=== PATIENT | female | born 1960 | race Caucasian/White ===

== ENCOUNTER 2018-10-17 11:07 | Inpatient (IN) | payer BC ==
[~2018-10-17] VITALS: Ht 154.9 cm; Wt 49.4 kg
[2018-10-17 14:12] VITALS: BP 104/62
[2018-10-17] MEDS ORDERED: HYDR2TAB4 PO (14:32)
[2018-10-17] MEDS ORDERED: BUPR300T52 PO (14:32)
[2018-10-17] MEDS ORDERED: SERT50TA PO (14:32)
[2018-10-17] MEDS ORDERED: CARI350T27 PO (14:32)
[2018-10-17] MEDS ORDERED: ALPR1TAB7 PO (14:32)
[2018-10-17] MEDS ORDERED: BUDE10.2 IH (14:32)
[2018-10-17] MEDS ORDERED: DOCU-141 PO (14:32)
[2018-10-17] MEDS ORDERED: BACL10TA PO (14:32)
[2018-10-17] MEDS ORDERED: FLUT16SP NS (14:32)
[2018-10-17] MEDS ORDERED: ACET-2030 PO (14:32)
[2018-10-17] MEDS ORDERED: ALBU8.5H8 IH (14:32)
[2018-10-17] MEDS ORDERED: HYDR-4354 PO (14:32)
[2018-10-17] MEDS ORDERED: METO50TA16 PO (14:32)
[2018-10-17] MEDS ORDERED: Medication Not On Formulary EA (Alprazolam (Xanax) 1 MG) PO PRN (15:30)
[2018-10-17] MEDS: HYDROCODONE/APAP 10-325 MG TABLET PO PRN ×2 (15:42→22:42)
[2018-10-17] MEDS ORDERED: HYDROCODONE/APAP 10-325 MG TABLET ONE (15:42)
--- NOTE | 2018-10-17 16:30 | NUR ---
Admission Note: Admitted a 58 years old female pt. from [facility] via [facility] on a gurney with 2 EMT staff and 2 DTR for emotional support. Pt. is under the care of Dr. Corey who came with the following DX: lumbar decompression, anxiety, depression, bladder retention, dental jewish, DJD, hx: blood transfusion, HTN, mild acid reflux, osteoarthritis, RA, ankle surgery, appendectomy, cervical fusion, lumbar repair, rotator cuff repair, and tonsillectomy. Pt. is A/OX4, verbally responsive and able to make her needs known. No sob or acute distress, on RA and tolerating well 95% SpO2. Pt. with c/o severe back pain 06/26, received dilaudid prior to transfer per EMT. Pt. is full code and has allergies to Gentamicin. Initial skin assessment performed, noted with lower back surgical incision with dressing. Per MD noted, may remove dressing on POD #%. Dr. Tracey to check incision in 2 weeks 10/29/18. No other skin condition noted. Pt. on regular diet, coordinated with dietary dept. Pt. belongings inventoried. [place] 325-10 mg PRN for pain given promptly as ordered. All pt. needs attended promptly. Kept pt. clean and dry. Safety precaution in place. Call light and all frequently used items within pt. reach. Called Dr. Bowser and able to touchbase, all orders and medications clarified and verified by MD. Will endorse to oncoming shift accordingly.
[2018-10-17] MEDS: HYDROMORPHONE HCL 2 MG TABLET PO PRN ×2 (17:32→21:11)
[2018-10-17] MEDS: CARISOPRODOL 350 MG TABLET PO PRN (17:32)
[2018-10-17] MEDS: DOCUSATE SODIUM 100 MG CAPSULE PO SCH (17:32)
[2018-10-17] MEDS ORDERED: Z GUARD REMEDY PASTE 57 GM TUBE TOP PRN (19:00)
--- NOTE | 2018-10-17 19:00 | NUR ---
Sleeping during initial rounds. No s/s of respiratory distress noted. Safety measure and fall precaution maintained. Continue plan of care.
[2018-10-17 19:42] VITALS: BP 110/80
[2018-10-17] MEDS: FLUTICASONE PROP NASAL SPRAY 16 GM BOTTLE NS SCH (21:09)
[2018-10-18] MEDS: CARISOPRODOL 350 MG TABLET PO PRN ×4 (00:21→22:55)
[2018-10-18] MEDS: HYDROMORPHONE HCL 2 MG TABLET PO PRN ×3 (03:20→12:37)
[2018-10-18 05:42] VITALS: BP 109/70
--- NOTE | 2018-10-18 05:48 | NUR ---
Shift End Report: VS stable. Medicated for pain as needed and ordered with mild relief. Encouraged patient non pharmaceutical measures like deep breathing, relaxation techniques, repositioning, guided imagery to relieved discomforts. Ambulated to the bathroom with walker and some minimal/hand held assist. No fall/injury. Instructed patient proper body alignment/proper body positioning while in bed or during ambulation/standing position. Patient unable/refused to return demonstration at this time due to pain. All needs attended and met. No significant event reported all night. Continue current rehab plan of care.
[2018-10-18] MEDS: HYDROCODONE/APAP 10-325 MG TABLET PO PRN ×2 (06:54→12:55)
[2018-10-18 08:00] VITALS: BP 103/71
[2018-10-18] MEDS: DOCUSATE SODIUM 100 MG CAPSULE PO SCH ×2 (08:38→15:59)
[2018-10-18] MEDS: buPROPion XL 150 MG TAB.SR.24H PO SCH (08:39)
[2018-10-18] MEDS: SERTRALINE HCL 50 MG TABLET PO SCH (08:40)
[2018-10-18] MEDS: METOPROLOL TARTRATE 50 MG TABLET PO SCH (08:53)
[2018-10-18] MEDS ORDERED: Medication Not On Formulary EA (Bupropion Hcl (Wellbutrin Xl) 300 MG) PO SCH (09:00)
[2018-10-18] MEDS: ALPRAZOLAM 0.5 MG TABLET PO PRN ×2 (11:05→23:48)
[2018-10-18] MEDS: OXYCODONE HCL 10 MG TAB.SR.12H PO SCH ×2 (15:59→21:19)
[2018-10-18 16:00] VITALS: BP 106/52
--- NOTE | 2018-10-18 16:16 | NUR ---
INTERDISCIPLINARY TEAM CONFERENCE
[2018-10-18] MEDS: OXYCODONE HCL 5 MG TABLET PO PRN ×2 (18:07→23:48)
--- NOTE | 2018-10-18 19:00 | NUR ---
Awake during initial rounds. Very pleasant, cooperative not in distress, denies any pain/discomforts at this time. Reported that the new pain medications are working effectively with her. informed patient the frequency of new pain medication and verbalized understanding. Safety measure and fall precaution maintained. Continue care as planned.
--- NOTE | 2018-10-18 19:14 | NUR ---
SBAR report received this morning, board updated. Pt assessed, no SOB noted, significant pain reported frequently since the beginning of shift. MD notified, that PRN pain medication are needing administration at earliest availability. Pt seen by MD, new orders received for new PRN and scheduled pain medication, regimen implemented per MD orders, resulting in improved Pt satisfaction and pain relief. Pt compliant with all routinely scheduled medications. VSS. Bed in locked and lowest position with side rails up x2. Back brace placed prior to all transfers. Pt cooperative with care. Pt teaching provided regarding infection s/s. Call light and personal items placed within reach. Will continue to monitor and endorse to oncoming evening or night nurse supervisor nurse.
[2018-10-18 19:29] VITALS: BP 103/60
[2018-10-18] MEDS: FLUTICASONE PROP NASAL SPRAY 16 GM BOTTLE NS SCH (20:21)
[2018-10-18] MEDS ORDERED: SYMBICORT 160/4.5 INHALER INH SCH (21:00)
--- NOTE | 2018-10-18 21:19 | NUR ---
Assisted to the BR with walker, back brace in placed. Encouraged deep breathing exercises during ambulation due to low back pain. Early dose of Oxycontin given as needed. Will monitor.
[2018-10-19] MEDS: OXYCODONE HCL 10 MG TAB.SR.12H PO SCH ×3 (05:32→21:14)
[2018-10-19 05:53] VITALS: BP 123/77
--- NOTE | 2018-10-19 05:56 | NUR ---
Shift End Report: VS WNL. Slept in between care. Medicated for low back pain as needed and as ordered with the pain scale 8-10/10 with help. Xanax and Soma medications was also given to aid in lessening pain/discomforts with effect. Ambulatory with walker with hand held assist/minimal assist. No fall/injury. Back brace in used all time when OOB. Back dressing dry and intact. No significant event reported all night. Continue current plan of care.
[2018-10-19] MEDS: DOCUSATE SODIUM 100 MG CAPSULE PO SCH ×2 (08:47→17:00)
[2018-10-19] MEDS: OXYCODONE HCL 5 MG TABLET PO PRN ×2 (08:47→15:53)
[2018-10-19] MEDS: METOPROLOL TARTRATE 50 MG TABLET PO SCH (08:48)
[2018-10-19] MEDS: buPROPion XL 150 MG TAB.SR.24H PO SCH (08:48)
[2018-10-19] MEDS: SERTRALINE HCL 50 MG TABLET PO SCH (08:49)
[2018-10-19] MEDS: CARISOPRODOL 350 MG TABLET PO PRN ×2 (12:30→20:20)
[2018-10-19] MEDS: ACETAMINOPHEN ES 500 MG TABLET PO PRN (13:13)
--- NOTE | 2018-10-19 13:53 | NUR ---
called MD Tracey who did lumbar decompression. pt was appeared and stated to be in severe pain. md Tracey recommended to change dressing according to nursing protocol and state to pt that she had a big surgery and it is expected. texted md bright for pain management. awaiting call back. will continue to monitor.
[2018-10-19 16:56] VITALS: BP 115/83
[2018-10-19] MEDS: FLUTICASONE/VILANTEROL 1 EACH BLST.W.DEV INH SCH (17:16)
--- NOTE | 2018-10-19 19:05 | NUR ---
Awake during initial rounds. Complaint of tolerable low back pain at this time and she's aware when she is gonna be due for the next pain medication. Turned and repositioned self with slight caution. Back brace off. Safety measure and fall precaution maintained. Continue care as planned,.
[2018-10-19 19:45] VITALS: BP 109/66
[2018-10-19] MEDS: FLUTICASONE PROP NASAL SPRAY 16 GM BOTTLE NS SCH (20:35)
[2018-10-20] MEDS: ACETAMINOPHEN ES 500 MG TABLET PO PRN ×3 (00:03→21:06)
[2018-10-20 04:45] VITALS: BP 94/63
[2018-10-20] MEDS: OXYCODONE HCL 10 MG TAB.SR.12H PO SCH ×3 (06:22→21:02)
--- NOTE | 2018-10-20 06:58 | NUR ---
Shift End Report: VS stable. Medicated for low back pain as ordered and needed with help. No further complaint presented. Seen ambulating in the hallway with walker with slow but steady gait. No fall/injury. All needs attended and met. Continue current rehab plan of care.
[2018-10-20] MEDS: METOPROLOL TARTRATE 50 MG TABLET PO SCH (08:57)
[2018-10-20] MEDS: DOCUSATE SODIUM 100 MG CAPSULE PO SCH ×2 (08:57→16:06)
[2018-10-20] MEDS: buPROPion XL 150 MG TAB.SR.24H PO SCH (08:57)
[2018-10-20] MEDS: FLUTICASONE/VILANTEROL 1 EACH BLST.W.DEV INH SCH (08:58)
[2018-10-20] MEDS: SERTRALINE HCL 50 MG TABLET PO SCH (08:58)
[2018-10-20 09:10] VITALS: BP 112/64
[2018-10-20] MEDS: OXYCODONE HCL 5 MG TABLET PO PRN ×3 (09:37→16:08)
--- NOTE | 2018-10-20 09:57 | NUR ---
Received nursing report from intensive care ambulance paramedic nurse. Pt. in bed comfortable. Pt A/OX4, able to make her needs known. No SOB or acute distress noted. Administered all due medications as ordered and tolerated well. Assisted pt. with morning ADL's. No new skin condition noted, surgical dressing on lower back changed on 10/19/18 per nursing report. Kept on TLSO brace when out of bed. Participated with rehab therapy this AM and tolerated well, did c/o 10/10 pain post therapy. PRN OxyIR given as ordered and effective. Bed in locked and lowest position with side rails up x2, alarm on. Call light within reach. Will continue to monitor.
--- NOTE | 2018-10-20 14:56 | NUR ---
INTERDISCIPLINARY TEAM CONFERENCE
[2018-10-20] MEDS: CARISOPRODOL 350 MG TABLET PO PRN (15:21)
[2018-10-20 16:41] VITALS: BP 135/78
--- NOTE | 2018-10-20 18:21 | NUR ---
End of shift: All due medications administered as ordered and tolerated well. No new skin condition noted. Family at pt. bedside for support. Kept pt. clean and dry. Call light and all frequently used items within pt. reach. Will endorse to oncoming shift accordingly.
--- NOTE | 2018-10-20 19:35 | NUR ---
Patient received in bed. AAO x4. Able to make needs known. No sign of acute distress or SOB was noted. On room air. Complained of pain in lower back rated 8/10. Patient assessed. Safety measures maintained. Fall prevention observed. Bed in low position, brake and alarm on, side rails up x2 for safety. Call light and personal belongings within reach. Will continue to monitor.
[2018-10-20 19:47] VITALS: BP 120/77
[2018-10-20] MEDS: FLUTICASONE PROP NASAL SPRAY 16 GM BOTTLE NS SCH (21:02)
[2018-10-21] MEDS: CARISOPRODOL 350 MG TABLET PO PRN ×2 (00:14→16:48)
[2018-10-21] MEDS: OXYCODONE HCL 5 MG TABLET PO PRN ×3 (00:39→16:48)
[2018-10-21 04:40] VITALS: BP 111/69
[2018-10-21] MEDS: OXYCODONE HCL 10 MG TAB.SR.12H PO SCH ×3 (06:07→21:05)
--- NOTE | 2018-10-21 06:46 | NUR ---
End of the shift note Patient was stable throughout the shift, but not having a good sleep last night because of pain. No sign of acute distress or SOB noted. Complained of pain on her lower back, Rated 8/10, Oxycodone 15 mg 3 tablets given @0039, pain reassess again. Medications given as ordered and well tolerated. Assisted her to the bathroom multiple times. Safety measures maintained. Hourly rounds done. All needs anticipated promptly. Fall precaution maintained. Bed in low position, brake and alarm on, side rails up x2. Call light and personal belongings within reach. Continue to monitor and will endorse to the day shift nurse accordingly.
[2018-10-21] MEDS: FLUTICASONE/VILANTEROL 1 EACH BLST.W.DEV INH SCH (08:01)
[2018-10-21] MEDS: DOCUSATE SODIUM 100 MG CAPSULE PO SCH ×2 (08:01→16:47)
[2018-10-21] MEDS: buPROPion XL 150 MG TAB.SR.24H PO SCH (08:02)
[2018-10-21] MEDS: SERTRALINE HCL 50 MG TABLET PO SCH (08:02)
[2018-10-21 08:05] VITALS: BP 107/65
--- NOTE | 2018-10-21 08:54 | NUR ---
Received nursing report from gas station operator nurse. Pt. in bed with c/o 10/10 pain on lower back. Pt A/OX4, able to make her needs known. No SOB or acute distress noted. Administered all due medications as ordered and tolerated well. PRN OxyIR given as ordered and effective. No new skin condition noted, surgical dressing C/D/I. Kept on TLSO brace when out of bed. Bed in locked and lowest position with side rails up x2, alarm on. Call light within reach. Will continue to monitor.
[2018-10-21] MEDS: METOPROLOL TARTRATE 50 MG TABLET PO SCH (09:00)
[2018-10-21] MEDS: ACETAMINOPHEN ES 500 MG TABLET PO PRN ×2 (15:02→22:22)
[2018-10-21 16:35] VITALS: BP 119/72
[2018-10-21] MEDS ORDERED: ZOLPIDEM 5 MG TABLET PO PRN (17:30)
--- NOTE | 2018-10-21 18:05 | NUR ---
End of shift: All due medications administered as ordered and tolerated well. No new skin condition noted. Family at pt. bedside for support. Dr. Yan came and evaluated pt. Informed MD of pt request for sleeping aid. Md with new orders. Kept pt. clean and dry. Pt. tolerated PT and OT today. Lower back incision remain C/D/I. Call light and all frequently used items within pt. reach. Will endorse to oncoming shift accordingly.
[2018-10-21 19:59] VITALS: BP 108/65
[2018-10-21] MEDS: FLUTICASONE PROP NASAL SPRAY 16 GM BOTTLE NS SCH (21:04)
[2018-10-22] MEDS: OXYCODONE HCL 5 MG TABLET PO PRN ×4 (01:06→21:29)
[2018-10-22] MEDS: CARISOPRODOL 350 MG TABLET PO PRN ×3 (01:06→20:14)
[2018-10-22 04:45] VITALS: BP 112/67
[2018-10-22] MEDS: OXYCODONE HCL 10 MG TAB.SR.12H PO SCH ×3 (05:22→21:27)
[2018-10-22] MEDS: ACETAMINOPHEN ES 500 MG TABLET PO PRN ×3 (06:12→18:46)
[2018-10-22 07:32] LABS: BASOPHILS % (AUTO) 0.4 % (0.0-2.0); EOSINOPHILS # (AUTO) 0.2 K/uL (0.0-0.7); EOSINOPHILS % (AUTO) 4.8 % (0.0-7.0); HEMATOCRIT 24.2 % (31.2-41.9); HEMOGLOBIN 8.4 g/dL (10.9-14.3); LYMPHOCYTES # (AUTO) 0.9 K/uL (20.0-40.0); LYMPHOCYTES % (AUTO) 21.4 % (20.5-51.5); MEAN CORPUSCULAR HEMOGLOBIN 33.1 uug (24.7-32.8); MEAN CORPUSCULAR HGB CONC 35 g/dL (32.3-35.6); MONOCYTES # (AUTO) 0.5 K/uL (2.0-10.0); MONOCYTES % (AUTO) 11.6 % (0.0-11.0); NEUTROPHILS # (AUTO) 2.6 K/uL (1.8-8.9); NEUTROPHILS % (AUTO) 61.8 % (38.5-71.5); PLATELET COUNT (AUTO) 286 K/uL (179-408); RED BLOOD CELL COUNT(AUTO) 2.55 MIL/uL (3.63-4.92); WHITE BLOOD COUNT (AUTO) 4.2 K/uL (3.8-11.8)
[2018-10-22 07:47] LABS: IRON, SERUM 25 ug/dL (50-175)
[2018-10-22 08:15] LABS: FERRITIN 68 ng/mL (8-252)
[2018-10-22] MEDS: FLUTICASONE/VILANTEROL 1 EACH BLST.W.DEV INH SCH (08:43)
[2018-10-22] MEDS: DOCUSATE SODIUM 100 MG CAPSULE PO SCH ×2 (08:43→16:11)
[2018-10-22] MEDS: buPROPion XL 150 MG TAB.SR.24H PO SCH (08:44)
[2018-10-22] MEDS: SERTRALINE HCL 50 MG TABLET PO SCH (08:44)
[2018-10-22] MEDS: METOPROLOL TARTRATE 50 MG TABLET PO SCH (08:50)
[2018-10-22 09:11] VITALS: BP 99/48
--- NOTE | 2018-10-22 09:40 | NUR ---
Received nursing report from night assistant nurse. Pt. sitting on chair comfortable. Pt A/OX4, able to make her needs known. No SOB or acute distress noted. Administered all due medications as ordered and tolerated well. PRN OxyIR given as ordered and effective. Participated with therapy this AM and tolerated well. No new skin condition noted, surgical dressing C/D/I. Kept on TLSO brace when out of bed. Bed in locked and lowest position with side rails up x2, alarm on. Call light within reach. Will continue to monitor.
[2018-10-22] MEDS: SOD FERRIC GLUC COMPLX/SUCROSE 125 MG in IV NORMAL SALINE 100 ML IV SCH (15:05)
[2018-10-22 16:49] VITALS: BP 117/81
--- NOTE | 2018-10-22 17:34 | NUR ---
Obtained hold parameters and clarification of order for stool OB from Dr. Marcial. Received order to hold Metoprolol for SBP less than 110 and stool OB x 3. Orders noted and carried out. Pt. made aware.
--- NOTE | 2018-10-22 18:08 | NUR ---
End of shift: All due medications administered as ordered and tolerated well. No new skin condition noted. Family at pt. bedside for support. 1450 Started new PIV x1 attempt on LH (22G) with good blood return, flushed with 5CC NS with no resistance met, secured with tegaderm. Pt. tolerated procedure well. No ASE noted from IV Sodium Ferrlecit. Kept pt. clean and dry. Lower back incision remain C/D/I. Call light and all frequently used items within pt. reach. Will endorse to oncoming shift accordingly.
--- NOTE | 2018-10-22 19:26 | NUR ---
SBAR received from day shift nurse. Patient alert and oriented x 4. C/O of pain upon assessment. Will administer pain medications. IV access intact and patient in LH. Side rails up bilaterally with most used items within reach. Will continue to monitor.
[2018-10-22 19:56] VITALS: BP 140/74
[2018-10-22] MEDS: FLUTICASONE PROP NASAL SPRAY 16 GM BOTTLE NS SCH (20:14)
[2018-10-22 22:47] LABS: *OCCULT BLOOD STOOL NEGATIVE (NEGATIVE)
[2018-10-23 04:00] VITALS: BP 115/65
[2018-10-23] MEDS: OXYCODONE HCL 10 MG TAB.SR.12H PO SCH ×3 (05:51→21:55)
[2018-10-23] MEDS: ACETAMINOPHEN ES 500 MG TABLET PO PRN ×3 (06:13→12:52)
--- NOTE | 2018-10-23 06:54 | NUR ---
All due medications administered as ordered and tolerated well. Pain medication given for C/O pain. Back brace in place with patient ambulates around unit and to bathroom. Lower back incision photographed, but dressing not changed. Call light and all frequently used items within reach. Will endorse to oncoming shift accordingly.
[2018-10-23 08:00] VITALS: BP 104/61
[2018-10-23] MEDS: FLUTICASONE/VILANTEROL 1 EACH BLST.W.DEV INH SCH (08:49)
[2018-10-23] MEDS: DOCUSATE SODIUM 100 MG CAPSULE PO SCH ×2 (08:50→17:14)
[2018-10-23] MEDS: CARISOPRODOL 350 MG TABLET PO PRN ×3 (08:50→23:28)
[2018-10-23] MEDS: buPROPion XL 150 MG TAB.SR.24H PO SCH (08:51)
[2018-10-23] MEDS: SERTRALINE HCL 50 MG TABLET PO SCH (08:51)
[2018-10-23] MEDS: OXYCODONE HCL 5 MG TABLET PO PRN ×3 (08:52→23:28)
[2018-10-23] MEDS: METOPROLOL TARTRATE 50 MG TABLET PO SCH (08:54)
[2018-10-23] MEDS: SOD FERRIC GLUC COMPLX/SUCROSE 125 MG in IV NORMAL SALINE 100 ML IV SCH (14:54)
[2018-10-23 15:19] LABS: *OCCULT BLOOD STOOL NEGATIVE (NEGATIVE)
[2018-10-23 16:00] VITALS: BP 127/64
--- NOTE | 2018-10-23 18:52 | NUR ---
SBAR report received this morning. Pt assessed NAD or no SOB. Pt reports 6-8/10 back pain relieved following administration of scheduled and PRN pain medication provided as ordered. Pt cooperative with all therapies as offered. Pt compliant with routinely scheduled medication administration. VSS. Bed in locked and lowest position with side rails up x2. All comfort and safety needs promptly met. No s/s of infection. Pt seen by MD, no new orders received. Left hand IV flushed, patent and intact. Pt able to make needs known, AO x4. BMx1, sample collected for occult stool, and sent to lab. Pt able to ambulate steadily with walker. Call light within reach, will continue to monitor and endorse to oncoming retail shift supervisor nurse.
--- NOTE | 2018-10-23 19:10 | NUR ---
Seen patient ambulating with walker in the hallway with slow but steady gait. Back brace in used. No s/s of pain/discomforts noted at this time. Continue care as planned.
[2018-10-23 19:47] VITALS: BP 138/75
[2018-10-23] MEDS: FLUTICASONE PROP NASAL SPRAY 16 GM BOTTLE NS SCH (20:17)
[2018-10-24] MEDS: OXYCODONE HCL 10 MG TAB.SR.12H PO SCH ×3 (06:50→21:10)
[2018-10-24 07:30] VITALS: BP 114/82
[2018-10-24] MEDS: DOCUSATE SODIUM 100 MG CAPSULE PO SCH ×2 (09:32→16:37)
[2018-10-24] MEDS: METOPROLOL TARTRATE 50 MG TABLET PO SCH (09:36)
[2018-10-24] MEDS: buPROPion XL 150 MG TAB.SR.24H PO SCH (09:36)
[2018-10-24] MEDS: SERTRALINE HCL 50 MG TABLET PO SCH (09:37)
[2018-10-24] MEDS: FLUTICASONE/VILANTEROL 1 EACH BLST.W.DEV INH SCH (09:37)
[2018-10-24] MEDS: OXYCODONE HCL 5 MG TABLET PO PRN ×2 (10:27→16:40)
[2018-10-24 11:26] LABS: *OCCULT BLOOD STOOL NEGATIVE (NEGATIVE)
[2018-10-24] MEDS: SOD FERRIC GLUC COMPLX/SUCROSE 125 MG in IV NORMAL SALINE 100 ML IV SCH (14:41)
[2018-10-24] MEDS: ACETAMINOPHEN ES 500 MG TABLET PO PRN (14:41)
[2018-10-24 16:07] VITALS: BP 124/69
[2018-10-24 20:12] VITALS: BP 111/66
[2018-10-24] MEDS: FLUTICASONE PROP NASAL SPRAY 16 GM BOTTLE NS SCH (21:08)
[2018-10-24] MEDS: CARISOPRODOL 350 MG TABLET PO PRN (21:10)
--- NOTE | 2018-10-24 21:29 | NUR ---
Received pt in bed, AAO x 4 watching television. No acute distress noted. Verbally responsive and able to make needs known. C/O pain in back, 5/10 on pain scale. Ambulated to the bathroom using walker with back brace on, began c/o spasms in lower back radiating to upper back. All due medications given as ordered, tolerated well. All safety measures and fall precautions maintained. Call light and all personal belongings within reach. Will continue to monitor.
[2018-10-25] MEDS: OXYCODONE HCL 5 MG TABLET PO PRN ×3 (00:39→16:44)
[2018-10-25 05:44] VITALS: BP 102/51
[2018-10-25] MEDS: OXYCODONE HCL 10 MG TAB.SR.12H PO SCH ×3 (06:23→21:21)
[2018-10-25 07:30] VITALS: BP 109/49
[2018-10-25] MEDS: ACETAMINOPHEN ES 500 MG TABLET PO PRN ×2 (07:34→19:55)
[2018-10-25] MEDS: CARISOPRODOL 350 MG TABLET PO PRN ×2 (07:34→19:55)
[2018-10-25] MEDS: FLUTICASONE/VILANTEROL 1 EACH BLST.W.DEV INH SCH (08:22)
[2018-10-25] MEDS: buPROPion XL 150 MG TAB.SR.24H PO SCH (08:22)
[2018-10-25] MEDS: SERTRALINE HCL 50 MG TABLET PO SCH (08:22)
[2018-10-25] MEDS: METOPROLOL TARTRATE 25 MG TABLET PO SCH ×2 (08:23→21:00)
[2018-10-25] MEDS: DOCUSATE SODIUM 100 MG CAPSULE PO SCH ×2 (08:24→16:45)
--- NOTE | 2018-10-25 10:42 | NUR ---
Received patient awake in bed with chest brace on for lumbar decompression. Continue pain management prior to therapy and if needed with good effect. Continue therapy for ambulation and ADL ability. not in distress. Continue monitoring blood pressure for narcotic use. no complaint of dizziness and discomfort.will continue monitor
--- NOTE | 2018-10-25 13:39 | NUR ---
INTERDISCIPLINARY TEAM CONFERENCE
[2018-10-25] MEDS: SOD FERRIC GLUC COMPLX/SUCROSE 125 MG in IV NORMAL SALINE 100 ML IV SCH (14:25)
[2018-10-25 15:45] VITALS: BP 116/59
[2018-10-25 19:57] VITALS: BP 116/63
[2018-10-25] MEDS: FLUTICASONE PROP NASAL SPRAY 16 GM BOTTLE NS SCH (21:20)
--- NOTE | 2018-10-25 23:56 | NUR ---
Received pt in bed, AAO x 4 watching television. No acute distress noted. Verbally responsive and able to make needs known. C/O aching pain on lower back. All due medications given per MD order, tolerated well. All safety measures and fall precautions maintained. Reminded to use brace when ambulating per MD order. Call light and all personal belongings within reach. Will continue to monitor.
[2018-10-26] MEDS: OXYCODONE HCL 5 MG TABLET PO PRN ×3 (00:50→17:35)
[2018-10-26 04:39] VITALS: BP 122/71
[2018-10-26] MEDS: OXYCODONE HCL 10 MG TAB.SR.12H PO SCH ×3 (06:10→21:39)
[2018-10-26 06:28] LABS: BASOPHILS % (AUTO) 0.5 % (0.0-2.0); EOSINOPHILS # (AUTO) 0.2 K/uL (0.0-0.7); EOSINOPHILS % (AUTO) 4.1 % (0.0-7.0); HEMATOCRIT 25.4 % (31.2-41.9); HEMOGLOBIN 8.7 g/dL (10.9-14.3); LYMPHOCYTES # (AUTO) 1.2 K/uL (20.0-40.0); LYMPHOCYTES % (AUTO) 24.3 % (20.5-51.5); MEAN CORPUSCULAR HEMOGLOBIN 32.4 uug (24.7-32.8); MEAN CORPUSCULAR HGB CONC 34 g/dL (32.3-35.6); MEAN CORPUSCULAR VOLUME 94.6 fL (75.5-95.3); MONOCYTES # (AUTO) 0.6 K/uL (2.0-10.0); NEUTROPHILS # (AUTO) 2.9 K/uL (1.8-8.9); NEUTROPHILS % (AUTO) 59.1 % (38.5-71.5); PLATELET COUNT (AUTO) 408 K/uL (179-408); RED BLOOD CELL COUNT(AUTO) 2.68 MIL/uL (3.63-4.92); WHITE BLOOD COUNT (AUTO) 4.9 K/uL (3.8-11.8)
[2018-10-26 06:45] LABS: CREATININE 0.7 mg/dL (0.6-1.3); PHOSPHOROUS 4.6 mg/dL (2.5-4.9)
[2018-10-26] MEDS: DICYCLOMINE HCL 10 MG CAPSULE PO SCH ×3 (12:00→23:57)
[2018-10-26] MEDS: ALPRAZOLAM 0.5 MG TABLET PO PRN (12:50)
[2018-10-26] MEDS: FLUTICASONE/VILANTEROL 1 EACH BLST.W.DEV INH SCH (12:51)
[2018-10-26] MEDS: METOPROLOL TARTRATE 25 MG TABLET PO SCH ×2 (12:51→20:14)
[2018-10-26] MEDS: buPROPion XL 150 MG TAB.SR.24H PO SCH (12:52)
[2018-10-26] MEDS: SERTRALINE HCL 50 MG TABLET PO SCH (12:52)
[2018-10-26] MEDS: DOCUSATE SODIUM 100 MG CAPSULE PO SCH ×2 (12:53→17:00)
[2018-10-26] MEDS: SOD FERRIC GLUC COMPLX/SUCROSE 125 MG in IV NORMAL SALINE 100 ML IV SCH (14:53)
--- NOTE | 2018-10-26 19:30 | NUR ---
SBAR received from day shift nurse. Patient alert and oriented x 4. No C/O of pain or SOB at this time. IV access intact and patient in right forearm. Family at bedside visiting patient. Side rails up bilaterally with most used items within reach. Will continue to monitor.
[2018-10-26] MEDS: FLUTICASONE PROP NASAL SPRAY 16 GM BOTTLE NS SCH (20:13)
[2018-10-26 20:49] VITALS: BP 115/71
[2018-10-26] MEDS: CARISOPRODOL 350 MG TABLET PO PRN (21:39)
[2018-10-27] MEDS: OXYCODONE HCL 5 MG TABLET PO PRN ×2 (01:07→17:21)
[2018-10-27 05:27] VITALS: BP 107/67
[2018-10-27] MEDS: OXYCODONE HCL 10 MG TAB.SR.12H PO SCH ×3 (06:00→21:45)
[2018-10-27] MEDS: DICYCLOMINE HCL 10 MG CAPSULE PO SCH ×4 (06:00→17:20)
--- NOTE | 2018-10-27 06:40 | NUR ---
Patient slept well throughout the night. All due medications administered as ordered and tolerated well. Pain medication given for C/O back pain. Back brace in place with patient ambulates around unit and to bathroom. Surgical incision in tact and kept clean. patient walking around the unit trying to stretch out her muscles. Call light and all frequently used items within reach. Will endorse to oncoming shift accordingly.
[2018-10-27] MEDS: buPROPion XL 150 MG TAB.SR.24H PO SCH (08:46)
[2018-10-27] MEDS: SERTRALINE HCL 50 MG TABLET PO SCH (08:46)
[2018-10-27] MEDS: FLUTICASONE/VILANTEROL 1 EACH BLST.W.DEV INH SCH (08:48)
[2018-10-27] MEDS: METOPROLOL TARTRATE 25 MG TABLET PO SCH ×2 (08:49→20:08)
[2018-10-27] MEDS: DOCUSATE SODIUM 100 MG CAPSULE PO SCH ×2 (08:49→17:20)
[2018-10-27 09:07] VITALS: BP 148/61
--- NOTE | 2018-10-27 19:30 | NUR ---
Nursing report received from day shift nurse. Patient alert and oriented x 4. No C/O of pain or SOB at this time. IV access intact and patient in right forearm. Side rails up bilaterally with most used items within reach. Will continue to monitor.
[2018-10-27 19:39] VITALS: BP 122/67
[2018-10-27] MEDS: FLUTICASONE PROP NASAL SPRAY 16 GM BOTTLE NS SCH (20:08)
[2018-10-27] MEDS: CARISOPRODOL 350 MG TABLET PO PRN (21:45)
[2018-10-28 05:02] VITALS: BP 114/63
[2018-10-28] MEDS: DICYCLOMINE HCL 10 MG CAPSULE PO SCH ×4 (05:59→18:14)
[2018-10-28] MEDS: OXYCODONE HCL 10 MG TAB.SR.12H PO SCH ×3 (05:59→21:41)
--- NOTE | 2018-10-28 06:42 | NUR ---
No significant changes over night. All due medications administered as ordered and tolerated well. Back brace in place when patient ambulates around unit and to bathroom. Surgical incision in tact and kept clean. Right forearm IV intact and patent. Call light and all frequently used items within reach. Will endorse to oncoming shift accordingly.
[2018-10-28 07:30] VITALS: BP 114/67
[2018-10-28 07:43] LABS: BASOPHILS % (AUTO) 0.6 % (0.0-2.0); EOSINOPHILS # (AUTO) 0.1 K/uL (0.0-0.7); EOSINOPHILS % (AUTO) 2.1 % (0.0-7.0); LYMPHOCYTES % (AUTO) 15.4 % (20.5-51.5); MEAN CORPUSCULAR HEMOGLOBIN 32.4 uug (24.7-32.8); MEAN CORPUSCULAR HGB CONC 34 g/dL (32.3-35.6); MEAN CORPUSCULAR VOLUME 95.1 fL (75.5-95.3); MONOCYTES # (AUTO) 0.6 K/uL (2.0-10.0); MONOCYTES % (AUTO) 8.8 % (0.0-11.0); NEUTROPHILS # (AUTO) 4.8 K/uL (1.8-8.9); NEUTROPHILS % (AUTO) 73.1 % (38.5-71.5); RED BLOOD CELL COUNT(AUTO) 3.06 MIL/uL (3.63-4.92)
[2018-10-28 07:45] LABS: CREATININE 0.8 mg/dL (0.6-1.3); MAGNESIUM 2.1 mg/dL (1.8-2.4); PHOSPHOROUS 4.2 mg/dL (2.5-4.9); POTASSIUM 4.2 mmol/L (3.5-5.1)
[2018-10-28 07:54] LABS: HEMATOCRIT 29.1 % (31.2-41.9); HEMOGLOBIN 9.9 g/dL (10.9-14.3); WHITE BLOOD COUNT (AUTO) 6.5 K/uL (3.8-11.8)
[2018-10-28 07:55] LABS: PLATELET COUNT (AUTO) 605 K/uL (179-408)
[2018-10-28] MEDS: DOCUSATE SODIUM 100 MG CAPSULE PO SCH ×2 (08:04→18:14)
[2018-10-28] MEDS: METOPROLOL TARTRATE 25 MG TABLET PO SCH ×2 (08:05→20:15)
[2018-10-28] MEDS: FLUTICASONE/VILANTEROL 1 EACH BLST.W.DEV INH SCH (08:06)
[2018-10-28] MEDS: buPROPion XL 150 MG TAB.SR.24H PO SCH (08:08)
[2018-10-28] MEDS: SERTRALINE HCL 50 MG TABLET PO SCH (08:09)
[2018-10-28] MEDS: OXYCODONE HCL 5 MG TABLET PO PRN (10:57)
[2018-10-28 15:58] VITALS: BP 99/48
--- NOTE | 2018-10-28 19:25 | NUR ---
Report received from day shift nurse. Patient alert and oriented x 4. No C/O of pain or SOB at this time. Patient up and walking around unit to "stretch herself out." Side rails up bilaterally with most used items within reach. Will continue to monitor.
[2018-10-28 19:46] VITALS: BP 116/73
[2018-10-28] MEDS: FLUTICASONE PROP NASAL SPRAY 16 GM BOTTLE NS SCH (20:16)
[2018-10-29] MEDS: OXYCODONE HCL 5 MG TABLET PO PRN ×2 (01:34→08:03)
[2018-10-29 05:10] VITALS: BP 113/68
[2018-10-29] MEDS: OXYCODONE HCL 10 MG TAB.SR.12H PO SCH (06:06)
[2018-10-29] MEDS: DICYCLOMINE HCL 10 MG CAPSULE PO SCH ×2 (06:06)
--- NOTE | 2018-10-29 06:45 | NUR ---
All due medications administered as ordered and tolerated well. Back brace in place when patient ambulates around unit and to bathroom. Patient ready and excited to be discharged today. Surgical incision in tact and kept clean. Call light and all frequently used items within reach. Will endorse to oncoming shift accordingly.
[2018-10-29 08:01] VITALS: BP 114/65
[2018-10-29] MEDS: DOCUSATE SODIUM 100 MG CAPSULE PO SCH (08:02)
[2018-10-29 08:04] VITALS: BP 114/65
[2018-10-29] MEDS: METOPROLOL TARTRATE 25 MG TABLET PO SCH (08:04)
[2018-10-29] MEDS: buPROPion XL 150 MG TAB.SR.24H PO SCH (08:05)
[2018-10-29] MEDS: FLUTICASONE/VILANTEROL 1 EACH BLST.W.DEV INH SCH (08:05)
[2018-10-29] MEDS: SERTRALINE HCL 50 MG TABLET PO SCH (08:05)
--- NOTE | 2018-10-29 08:15 | NUR ---
Discharge instructions provided to the patient with verbalized understanding. Discharge papers signed by and given to the patient. All belongings well accounted for and brought home with the patient. Patient remains alert, oriented x 4 not in any form of acute distress. She complained of low back pain and given PRN pain medication as ordered. All due medications administered. Patient picked up by and daughter via private car to go for appointment with Dr. Tracey then home.
== END 2018-10-29 08:15 | disposition home or self-care (01) | DRG 561 ==
PROVIDERS: ADMIT Physical Medicine & Rehabilitation Pain Medicine; ATTEND Physical Medicine & Rehabilitation Pain Medicine
DX: Z47.89 Encounter for other orthopedic aftercare (principal); M19.90 Unspecified osteoarthritis, unspecified site; F32.9 Major depressive disorder, single episode, unspecified; F41.9 Anxiety disorder, unspecified; K21.9 Gastro-esophageal reflux disease without esophagitis; I10 Essential (primary) hypertension; M06.9 Rheumatoid arthritis, unspecified; K58.9 Irritable bowel syndrome, unspecified; Z88.1 Allergy status to other antibiotic agents; Z98.1 Arthrodesis status
CPT/HCPCS: 36415; 83550; 83735; 84100; 85025; 92523; 92526; 92610; 97110; 97112; 97116; 97165; 97530; 97535; A9150; J2916; J3490; J3535; J7050